=== PATIENT | female | born 1975 | race Caucasian/White ===

== ENCOUNTER 2017-06-11 18:59 | Inpatient (IN) ==
[~2017-06-11 18:59] MED LIST: *HR* Nalbuphine 20 MG/ML AMPUL IVP PRN; Famotidine 20 MG/2 ML VIAL IVP PRN; Lidocaine 1% 20 ML MDV INFILT PRN; Metoclopramide 10 MG/2 ML VIAL IVP PRN; Naloxone 0.4 MG/ML INJ IVP PRN; Ondansetron 4 MG/2 ML VIAL IVP PRN
[2017-06-11] MEDS ORDERED: D5% in Lactated Ringers 1,000 ML IVC SCH (19:00)
[2017-06-11] MEDS ORDERED: Ringers Solution, Lactated 1,000 ML IVC SCH (19:00)
--- NOTE | 2017-06-11 19:06 | OB/GYN History & Physical ---
Date of Encounter: 06/12/17 Time of Encounter: 07:30 Assessment and Plan (1) with 36 completed weeks gestation Current visit: Yes Status: Acute Admit to labor and delivery for P-PROM Routine labor management Consider pitocin at 6 hours post-rupture if contraction pattern not adequate Epidural when requested Anticipate (2) NST (non-stress test) reactive on surveillance Current visit: Yes Status: Acute Baseline 140 bpm moderate variability Category I +accels/ - decels FHT reassuring Anticipate (3) Advanced maternal age (AMA), 40 years or greater Current visit: Yes Status: Acute (4) Gestational diabetes mellitus Current visit: Yes Status: Acute Qualifiers: Gestational diabetes mellitus control: oral hypoglycemic-controlled Trimester: third trimester Qualified Code(s): O24.415 - Gestational diabetes mellitus in , controlled by oral hypoglycemic drugs History of Present Illness Chief complaint: Evaluation of Labor HPI: Ms. Graff is a 42 year old female at 36 weeks and 1 day presents to labor and delivery for spontaneous rupture of membranes. She reports that she went to the restroom at approximately 1700, felt a "pop" and noticed leakage of clear fluid. She reports good movements, denies contractions, vaginal bleeding, vaginal discharge. She receives care from Dr. Tapia, last outpatient visit this AM. She denies headaches, vision disturbances, chest pain, shortness of breath, epigastric pain, dysuria. She had episodes of nausea and vomiting 2 days ago that have resolved. Denies fever , chills, diarrhea. is complicated by advance maternal age, gestational diabetes, previous history of multiple spontaneous abortions. Blood type: O+ GBS: negative Hep B Antigen: nonreactive HIV Antibody: nonreactive T Pallidum: negative Rubella IgG: positive Varicella IgG: positive Past Med Surg Social Fam HX - Past Medical History Medical history: no medical history Psychiatric history: no psych history - Social History Smoking Status: Never smoker Alcohol use: none Drug use: none Obstetrical History - Pregnancies : 6 Para: 0 Ab's: 5 Medications and Allergies 3 Allergy/AdvReac Type Severity Reaction Status Date / Time Sulfa (Sulfonamide Allergy See Verified 12/19/16 19:43 Antibiotics) Comments Review of System OB All systems PM: reviewed and no additional remarkable complaints except as stated - Constitutional Constitutional ROS IM: as per HPI - Cardiovascular Cardiovascular: as per HPI - Respiratory Respiratory: as per HPI - Gastrointestinal Gastrointestinal: as per HPI, no vomiting - Genitourinary Genitourinary: as per HPI Exam - Constitutional Constitutional: well developed, well nourished, no acute distress, average body habitus - HEENT HEENT: Mucus Membranes Moist - Neck Neck exam: full ROM - Lungs Respiratory exam: CTAB - Cardiovascular Cardiovascular exam: RRR, +S1, +S2 - Abdomen Abdomen: Present: bowel sounds normal, non tender - Extremities Extremities exam: warm, radial pulses palpable and symmetrical Deep Tendon Reflex Grade: 2+ Normal - Uterus Uterus exam: Present: normal size, normal contour Results Result Diagrams: 06/11/17 19:05 All other labs normal. - Attending Attestation I examined this patient and my medical decision-making was reviewed with the Resident Physician. I agree with the documented findings, disposition and treatment plan as described.
[2017-06-11 19:37] LABS: Amphetamine Screen,Urine Negative ng/mL (Cutoff=1000); Barbiturate Screen,Urine Negative ng/mL (Cutoff=200); Benzodiazepines Screen,Urine Negative ng/mL (Cutoff=200); Cannabinoid Screen,Urine Negative ng/mL (Cutoff = 50); Cocaine Screen,Urine Negative ng/mL (Cutoff= 300); Opiate Screen,Urine Negative ng/mL (Cutoff=300); Phencyclidine Screen,Urine Negative ng/mL (Cutoff=25)
[2017-06-11 19:39] LABS: Basophils % 0.4 %; Eosinophils # 0.3 K/mcL (0.0-0.6); Eosinophils % 3.1 %; Hematocrit 36.1 % (35.3-44.9); Hemoglobin 12.1 g/dL (11.5-15.4); Immature Granulocytes % 0.7 % (0-4); Lymphocytes # 1.2 K/mcL (0.6-4.6); Lymphocytes % 12.2 %; Mean Corpuscular HGB Conc 33.5 g/dL (31.6-35.5); Mean Corpuscular Hemoglobin 29.7 pg (28.0-33.3); Mean Corpuscular Volume 88.7 fL (83.0-100.0); Mean Platelet Volume 11.9 fL (9.4-12.4); Monocytes # 0.8 K/mcL (0.0-1.3); Monocytes % 8.4 %; Neutrophils # 7.4 K/mcL (1.6-8.9); Platelet Count 225 K/mcL (140-400); Red Blood Count 4.07 M/mcL (3.82-4.97); Red Cell Distribution Width 13.8 % (11.5-14.5); Segmented Neutrophils % 75.2 %
--- NOTE | 2017-06-11 20:46 | Anesthesia Evaluation PreOp ---
Date of Encounter: 06/11/17 Time of Encounter: 20:43 - Past History Planned Operation: vasu Cardiac History: Denies any Significant Hx Pulmonary History: Denies Any Significant HX V[employer] REPRESENTATIVE History: Denies Any Significant HX Other Medical History: Diabetes Type II (gestational), Thyroid (no rx) Anesthesia History: No Prior Anesthetic Complications, Past Anesthesia (lumbar L5 "shaving") : Yes Test: Positive Alcohol Use: none Drug use: none Medications and Allergies 3 Allergy/AdvReac Type Severity Reaction Status Date / Time Sulfa (Sulfonamide Allergy See Verified 12/19/16 19:43 Antibiotics) Comments - Meds/Allergy Pre-op Review Medications Reviewed: Yes Allergies Reviewed: Yes Beta Blockers on Current Med List: No Anesthesia Results - Labs 06/11/17 19:05 Anesthesia Exam 127/71 80 16 fht 136 Height: 5"2" Weight: 110 NPO (# of Hours): 4 Pain Scale: 2 Pain Scale Used: Numeric (1 - 10) - HEENT Pupil (Motor): Pupils equal Mallampati: II Teeth: Normal Oral Opening: Greater than 3 - VETERANS SERVICE REPRESENTATIVE LOC: Oriented V[employer] SERVICE REPRESENTATIVE Motor: Normal RUE, Normal LUE, Normal RLE, Normal LLE, Normal Face [employer] SERV[employer] REPRESENTATIVE Sensory: Normal: RUE, LUE, RLE, LLE, Face - Cardiac Rhythm: Regular Murmur: None - Pulmonary Breath Sounds: bilateral Clear Respiratory Effort: Symmetrical Anesthesia Assess/Plan ASA Score: 2 Modified Jessie Scale for Level of Consciousness: Cooperative, oriented, and tranquil Anesthetic Plan: Regional Autologous Blood: No Monitoring Plan: Standard Monitors Recovery Plan: Other (risks discussed questions answered, consented)
[2017-06-11] MEDS: *HR* Metformin 500 MG TABLET PO SCH (23:08)
[2017-06-12] MEDS ORDERED: Acetaminophen 325 MG TABLET PO PRN (02:41)
[2017-06-12] MEDS ORDERED: Famotidine 20 MG/2 ML VIAL IVP ONE ×2 (04:49→19:41)
[2017-06-12] MEDS ORDERED: Oxytocin 20 units/ LR 1000 mL 20 UNIT/1,000 ML BAG IVC SCH (07:15)
[2017-06-12] MEDS ORDERED: Penicillin G Potassium 5,000,000 UNIT in 0.9 % Sodium Chloride Mini Bag 100 ML IVPB ONE (09:11)
--- NOTE | 2017-06-12 09:15 | OB Labor Progress Note ---
Date of Encounter: 06/12/17 Time of Encounter: 09:13 Labor Progress Note - Subjective Subjective: Patient resting in bed. Discussed POC with patient. Patient agrees at this time to PCN prophylaxis for prolonged rupture of membranes and to start Pitocin for labor augmentation. - Cervix Cervix: 5/90/-1 - Heart Tones Heart Tones: 125 bpm moderate amount of variability +15x15 accels no decels noted. Cat. 1 tracing - [place]: irregular - Interventions Interventions: SVE - Plan Plan: start ATB Start Pitocin Continue labor management anticipate
[2017-06-12] MEDS: Acetaminophen 325 MG TABLET PO PRN (09:44)
[2017-06-12] MEDS: Penicillin G Potassium 2,500,000 UNIT in 0.9 % Sodium Chloride 100 ML IVPB SCH ×3 (13:51→22:26)
--- NOTE | 2017-06-12 16:53 | OB Labor Progress Note ---
Date of Encounter: 06/12/17 Time of Encounter: 16:50 Labor Progress Note - Subjective Subjective: Patient resting in bed. Discussed POC with patient. Patient denies any questions or concerns. - Cervix Cervix: 5/90/-1 - Heart Tones Heart Tones: 130 bpm moderate variability +15x15 accels no decels noted. Cat 1 tracing - [place]: 3-5 min - Interventions Interventions: SVE, repositioned. Encouraged birthing ball. Dr. Romeo notified about SVE and no cervical change. - Plan Plan: Continue labor management.
--- NOTE | 2017-06-12 20:35 | OB Labor Progress Note ---
Date of Encounter: 06/12/17 Time of Encounter: 20:32 Labor Progress Note - Subjective Subjective: Patient resting in bed. Patient reports contractions are getting more painful. Patient is unsure if she is ready for pain medication at this time. - Cervix Cervix: 6/100/-1 - Heart Tones Heart Tones: 135 bpm moderate amount of variability +15x15 accels no decels noted. - [place]: 2-3 min apart - Interventions Interventions: SVE, Patient repositioned - Plan Plan: Continue labor management. Patient may have Nubain or epidural if desires for intervention for pain.
[2017-06-12] MEDS: *HR* Metformin 500 MG TABLET PO SCH (21:04)
[2017-06-12] MEDS ORDERED: Ringers Solution, Lactated 500 ML IVC ONE (21:23)
[2017-06-12] MEDS ORDERED: EPHEDrine 50 MG/ML VIAL IVP PRN (21:23)
[2017-06-12] MEDS ORDERED: Epidural Premix (fent/bupiv) 110 ML EP ONE (21:26)
[2017-06-12] MEDS ORDERED: Epidural Premix (fent/bupiv) 110 ML EP SCH (21:30)
--- NOTE | 2017-06-12 22:13 | Anesthesia Procedures ---
Date of Encounter: 06/12/17 Time of Encounter: 22:11 Procedures: Anesthesia - Epidural/Spinal Patient ID/Chart reviewed: Yes Patient examined: Yes OB Eval: Gestational age: 39.3 OB Eval: : 6 OB Eval: Hx Para: 0 OB Eval: Dilated at (cm): 6 OB Eval: Contractions: Non-stressed pattern Consent Obtained: Yes Supplemental Oxygen: None/Room Air Site Prep: Aseptic Technique, Sterile prep and drape, Povidone-Iodine 1% Patient position: upright Local Anesthetic: Lidocaine 1% Amount of Local Anesthetic used: 3 Touhy Needle Gauge: 18 Touhy Needle Depth (cm): 9 Catheter Depth at Skin (cm): 20 Test Dose (1.5% Lido + Epi): Volume given (mls): 5 Test Dose Result: Negative Loading Dose: Other: 10mls of epidural pharm bag premix solution Loading Dose Administered: Thru Catheter Infusion Med: 0.125% Bupivacaine w/ 2 mcg/ml Fentanyl Infusion Rate (mls/hr): [address]: Tegaderm, Tape Interspace Used: L3-L4 Loss of Resistance (RACHAEL): Yes Blood: No CSF: No Paresthesia: No Procedure: pt tolerated procedure well. no complications. vss. fhr stable throughout. see nursing charts for complete vitals.
[2017-06-13] MEDS: Penicillin G Potassium 2,500,000 UNIT in 0.9 % Sodium Chloride 100 ML IVPB SCH ×3 (02:44→12:12)
[2017-06-13] MEDS: *HR* Metformin 500 MG TABLET PO SCH (02:44)
[2017-06-13] MEDS ORDERED: Epidural Premix (fent/bupiv) 110 ML EP ONE ×2 (04:27→10:59)
[2017-06-13] MEDS: Acetaminophen 325 MG TABLET PO PRN ×2 (07:49→23:54)
[2017-06-13] MEDS ORDERED: Famotidine 20 MG/2 ML VIAL IVP ONE (08:02)
--- NOTE | 2017-06-13 11:15 | OB Labor Progress Note ---
Date of Encounter: 06/13/17 Time of Encounter: 10:21 Labor Progress Note - Subjective Subjective: Pt comfortable with epidural. No complaints at this time. - Cervix Cervix: 6/100/0 - Heart Tones Heart Tones: Category I - [place]: irregular - Interventions Interventions: AROM of forebag with clear fluid - Plan Plan: Continue to monitor and reposition. Will reassess SVE in 1.5-2 hours. Continue to titrate pitocin.
[2017-06-13] MEDS ORDERED: Penicillin G Potassium 2,500,000 UNIT in 0.9 % Sodium Chloride 100 ML IVPB SCH (16:00)
--- NOTE | 2017-06-13 17:38 | OB/GYN Procedure Note ---
Delivery - Delivery Date: 06/13/17 Provider: Saumya Holland Intrapartum events: prolonged labor- > = 20hr Delivery induction: none Delivery augmentation: pitocin Delivery monitor: external FHT, internal uterine Anesthesia: epidural Estimated Blood Loss: 300 - Infant (s) A Delivery Date: 06/13/17 Delivery Time: 17:00 Presentation: vertex Position: STALIN Route of delivery: Gender: Male Viability: Viable Pounds: 6 Ounces: 5 Weight Gram: 2.86 kg at 1 minute: 6 at 5 mins: 8 Shoulder Dystocia: not encountered Specimens collected: cord blood Placenta: spontaneous Cord: 3 umbilical vessels - Repair Episiotomy: none Laceration Description: Vaginal - Complications Delivery complications: meconium Delivery comments: Pt pushed effectively to for viable male "Madan" weighing 6lbs 5oz with apgars 6 at one minute and 8 at five minutes. After pulsations ceased the cord was clamped and cut and the placenta delivered spontaneous and intact. A small right vaginal laceration was repaired with 4-0 monocryl and a left periurethral laceration was not repaired. EBL 300ml. Mother and baby stable in kangaroo care following procedure. - Disposition Mom disposition: stable in LDR disposition: stable in LDR
[2017-06-13] MEDS ORDERED: Oxytocin 20 units/ LR 1000 mL 20 UNIT/1,000 ML BAG IVC SCH (20:19)
[2017-06-13] MEDS ORDERED: Measles/Mumps/Rubella Vacc 0.5 ML VIAL SQ PRN (20:19)
[2017-06-13] MEDS: Ibuprofen 600 MG TABLET PO PRN (20:43)
[2017-06-13] MEDS: Famotidine 20 MG TABLET PO SCH (23:54)
[2017-06-14] MEDS ORDERED: Lanolin 7 G OINT...G. TP PRN (05:40)
[2017-06-14] MEDS: Ibuprofen 600 MG TABLET PO PRN ×2 (05:45→22:57)
[2017-06-14] MEDS: Famotidine 20 MG TABLET PO SCH ×2 (08:31→19:50)
[2017-06-14] MEDS: Prenatal Vit/FA 1 EACH TABLET PO SCH (08:32)
--- NOTE | 2017-06-14 13:02 | OB/GYN Progress Note ---
Date of Encounter: 06/14/17 Time of Encounter: 12:59 - Assessment and Plan (1) (spontaneous vaginal delivery) Current Visit: Yes Status: Acute Patient meeting day 1 milestones possible discharge home tomorrow (2) Breast feeding status of mother Current Visit: Yes Status: Acute support prn Subjective - Subjective Principal diagnosis: Interval history: Patient is day 1. Patient is doing well. Moderate lochia without blood clots. Patient reports: appetite normal, voiding normally, pain well controlled, ambulating normally : doing well, nursing well Objective - Latest Vital Signs Latest vital signs: Vital Signs Temp Pulse Resp BP Pulse Ox 06/14/17 08:30 97.5 F L 70 12 122/73 98 06/14/17 04:10 97.5 F L 67 16 103/65 99 06/13/17 21:48 98.3 F 77 16 111/66 97 06/13/17 20:41 98.3 F 73 16 121/65 100 06/13/17 19:45 98.8 F 72 16 118/73 100 Intake and Output 06/13/17 06/14/17 06/14/17 23:59 07:59 15:59 Output Total 200 / 200 Balance -200 / -200 Output: Urine 200 / 200 Other: Weight 111.3 kg Patient Weight 06/14/17 23:59 Weight 111.3 kg - Exam Lungs: bilateral: normal Chest: Normal S1, Normal S2 Extremities: Present: normal Abdomen: Present: normal appearance, soft, gravid Uterus: Present: normal, firm Uterus Position: 1 Finger Below Umbilicus, Midline
[2017-06-14] MEDS: Acetaminophen 325 MG TABLET PO PRN (19:50)
[2017-06-15] MEDS: Ibuprofen 600 MG TABLET PO PRN (06:17)
[2017-06-15 08:33] VITALS: BP 131/70
[2017-06-15] MEDS: Famotidine 20 MG TABLET PO SCH (09:22)
[2017-06-15] MEDS: Prenatal Vit/FA 1 EACH TABLET PO SCH (09:22)
[2017-06-15] MEDS: Acetaminophen 325 MG TABLET PO PRN (09:23)
--- NOTE | 2017-06-15 13:27 | Discharge Summary ---
Date of Encounter: 06/15/17 Time of Encounter: 13:25 - Discharge Diagnosis (1) Advanced maternal age (AMA), 40 years or greater Priority: Secondary Status: Acute (2) Breast feeding status of mother Priority: Secondary Status: Acute Comments: consult prn (3) (spontaneous vaginal delivery) Priority: Primary Status: Acute Comments: Pain well controlled with PO medications VSS Tolerating regular diet Voiding independently Passing flatus, but no BM yet Lochia light Discharge home - Discharge Medications Prescriptions: Ibuprofen [Motrin] 600 mg PO Q6HR PRN #30 tablet PRN Reason: Cramping Docusate [Colace] 100 mg PO BID #30 capsule Home Medications: Acetaminophen [Tylenol] 650 mg PO Q6HR PRN tablet 06/15/17 [Rx] Docusate [Colace] 100 mg PO BID #30 capsule 06/15/17 [Rx] Ibuprofen [Motrin] 600 mg PO Q6HR PRN #30 tablet 06/15/17 [Rx] Lanolin [Lansinoh] 1 appl TP TID PRN oint...g. 06/15/17 [Rx] Vit/FA 1 each PO DAILY tablet 06/15/17 [Rx] Allergies/Adverse Reactions: 3 Allergy/AdvReac Type Severity Reaction Status Date / Time Sulfa (Sulfonamide Allergy See Verified 12/19/16 19:43 Antibiotics) Comments Data Procedures and tests throughout hospitalization: Laboratory Tests 06/11/17 06/11/17 06/11/17 19:05 19:09 19:10 WBC 9.9 RBC 4.07 Hgb 12.1 Hct 36.1 MCV 88.7 MCH 29.7 MCHC 33.5 RDW 13.8 Plt Count 225 MPV 11.9 Immature Gran % 0.7 Seg Neutrophils % 75.2 Lymphocytes % 12.2 Monocytes % 8.4 Eosinophils % 3.1 Basophils % 0.4 Neutrophils # 7.4 Lymphocytes # 1.2 Monocytes # 0.8 Eosinophils # 0.3 Basophils # 0.0 POC Glucose 99 H Urine Opiates Screen Negative Ur Barbiturates Screen Negative Ur Phencyclidine Scrn Negative Ur Amphetamines Screen Negative U Benzodiazepines Scrn Negative Urine Cocaine Screen Negative U Marijuana (THC) Screen Negative 06/12/17 06/12/17 06/12/17 03:04 09:38 16:57 WBC RBC Hgb Hct MCV MCH MCHC RDW Plt Count MPV Immature Gran % Seg Neutrophils % Lymphocytes % Monocytes % Eosinophils % Basophils % Neutrophils # Lymphocytes # Monocytes # Eosinophils # Basophils # POC Glucose 123 H 96 H 72 Urine Opiates Screen Ur Barbiturates Screen Ur Phencyclidine Scrn Ur Amphetamines Screen U Benzodiazepines Scrn Urine Cocaine Screen U Marijuana (THC) Screen 06/12/17 06/13/17 20:54 10:03 WBC RBC Hgb Hct MCV MCH MCHC RDW Plt Count MPV Immature Gran % Seg Neutrophils % Lymphocytes % Monocytes % Eosinophils % Basophils % Neutrophils # Lymphocytes # Monocytes # Eosinophils # Basophils # POC Glucose 86 82 Urine Opiates Screen Ur Barbiturates Screen Ur Phencyclidine Scrn Ur Amphetamines Screen U Benzodiazepines Scrn Urine Cocaine Screen U Marijuana (THC) Screen Date of admission: 06/11/17 18:59 Primary care physician: Max Steward Consults: 06/13/17 20:19 Consult to [employer] [CONS] Routine Comment: Vaginal delivery, consult needed Discharging clinician: Marley Cueto Anticipated date of discharge: 06/15/17 - Patient Status Disposition: Home, Self-Care Condition: Good Functional capacity at discharge: independent ambulation Overall status at discharge: patient is progressing back to baseline - Discharge Instructions Follow Up With: Max Steward DO [Primary Care Provider] - Abhishek Tapia MD [Partnered Physician] - - Diet and Activity Activity: return to work once cleared by your PCP/specialist Diet: regular diet Hospital Course Reason for admission: IUP - , ROM Delivery: Episiotomy: none Laceration: vaginal side wall Other procedures: none complications: none Discharge diagnosis: delivery baby: male Time Attestation: Total time spent providing and/or coordinating discharge services: Time Spent: Less than 30 minutes Exam - Constitutional Vitals: Temp Pulse Resp BP Pulse Ox 98.5 F 64 16 131/70 100 06/15/17 08:29 06/15/17 08:29 06/15/17 08:29 06/15/17 08:29 06/15/17 08:29 General appearance IM: A&O X 3 - Respiratory Respiratory exam: Present: CTAB - Cardiovascular Cardiovascular exam IM: Present: RRR, +S1, +S2 - GI/Abdominal GI/Abdominal exam IM: normal bowel sounds - Rectal Rectal exam: deferred - Uterine Tone: Firm Uterus Position: At Umbilicus, Midline - Extremities Exam Extremities exam IM: Present: normal inspection, radial pulses palpable and symmetrical - Neurological Exam Neurological exam: alert, oriented X3 - Psychiatric Additional comments: Pt feeling mentally well today. Has history of depression treated with medication. Advised to wait to start meds until 6 week pp visit. S/sx of PPD discussed at length with pt and and both verbalized understanding of when to call office.
== END 2017-06-15 14:24 | disposition home or self-care (01) | DRG 775 ==
LOC: 1NENULAB → 1NENUOBS 06-13 20:09
PROVIDERS: ADMIT Student in an Organized Health Care Education/Training Program; ATTEND Student in an Organized Health Care Education/Training Program